=== PATIENT | female | born 1960 | race Caucasian/White ===

== ENCOUNTER 2019-07-18 03:26 | Emergency (ER) | payer MEDICAID ==
[~2019-07-18] VITALS: Ht 162.6 cm; Wt 73.0 kg
[2019-07-18] MEDS ORDERED: CLONIDINE 0.2MG TABLET PO ONE (04:45)
[2019-07-18] MEDS ORDERED: DIPHENHYDRAMINE 50MG/ML VIAL IV ONE (05:00)
[2019-07-18 05:01] LABS: BASOPHILS % 0.4 % (0.0-2.0); EOSINOPHILS % 0.9 % (0.0-5.0); HEMATOCRIT. 42.5 % (36.0-48.0); HEMOGLOBIN. 14.3 g/dL (12.0-16.0); MEAN CORPUSCULAR HEMOGLOBIN 29.8 pg (28.0-32.0); MEAN CORPUSCULAR VOLUME 88.7 fL (81.0-99.0); MEAN PLATELET VOLUME 8.3 fl (7.4-10.4); NEUTROPHILS % 67.7 % (40.0-76.0); PLATELET 219 x1000/uL (130-400)
[2019-07-18 05:08] LABS: CHLORIDE 109 mEq/L (98-107)
[2019-07-18 06:30] VITALS: BP 108/63
== END 2019-07-18 06:31 | disposition home or self-care (01) ==
LOC: ER 03:26
DX: I10 Essential (primary) hypertension (principal); T78.40XA Allergy, unspecified, initial encounter; X58.XXXA Exposure to other specified factors, initial encounter
CPT/HCPCS: 36415; 71045; 80053; 83880; 84484; 85025; 93005; 96374; 99284; J1200